=== PATIENT | male | born 1970 | race Caucasian/White ===

== ENCOUNTER 2021-04-13 11:04 | Emergency (ER) | payer OTHER ==
[~2021-04-13] VITALS: Ht 180.3 cm; Wt 140.0 kg
[2021-04-13 12:00] VITALS: BP 153/98
--- NOTE | 2021-04-13 13:19 | RAD ---
Exam Date: 04/13/2021 12:[address] THORAX WO Indication: Reason: rib pain S/P FALL LAST WEEK / Spl. Instructions: / History: . TECHNIQUE: CT scan of the chest was performed without intravenous contrast. One or more of the [facility] dose reduction techniques were utilized: *Automated exposure control (AEC) *Adjustment of mA and/or kV according to patient size *Use of iterative reconstruction technique *CT scan done according to ALARA, or ALARA/IMAGE GENTLY FINDINGS: There are nondisplaced or mildly displaced acute fractures of the right lateral/posterolateral fourth , fifth, sixth, seventh, and eighth ribs. There is a small right pleural effusion measuring 2 Hounsfield units, with right basilar subsegmental atelectasis. The central airways are patent. There is no pneumothorax. The visualized thyroid gland is within normal limits. No lymphadenopathy is seen. Bilateral gynecomastia is noted. Aorta is normal in caliber with no significant atherosclerotic calcifications. The heart is normal in size without pericardial effusion. Images of the upper abdomen demonstrate gallstones. Degenerative changes are seen in the spine. IMPRESSION: Nondisplaced or mildly displaced acute fractures of the right fourth, fifth, sixth, seventh, and eigh th ribs as described. Small right pleural effusion measuring simple fluid density, with right basilar subsegmental atelecta sis. Electronically signed by: Arya Damon MD (04/13/2021 1:16 PM) [facility]
[2021-04-13] MEDS ORDERED: LIDOCAINE (700MG/PATCH) PATCH. ONE (13:25)
[2021-04-13] MEDS ORDERED: HYDROcodone/APAP 7.5/325MG 1 TAB TABLET PO ONE (13:45)
[2021-04-13] MEDS ORDERED: LIDOCAINE (700MG/PATCH) PATCH. TD SCH ×2 (14:00)
[2021-04-13] MEDS ORDERED: HYDROcodone/APAP 5/325MG 1 TAB TABLET PO ONE (14:30)
[2021-04-13] MEDS ORDERED: LIDO700A21 TP (14:37)
[2021-04-13] MEDS ORDERED: HYDR-2155 PO (14:37)
--- NOTE | 2021-04-13 14:38 | PHYS DOC ---
Past History Past Surgical History: Other Additional Past Surgical Histo: R knee scope, achillies tendon, plantar fascitis Alcohol Use: Occasionally General Adult EDM: Chief Complaint: RIB PAIN HPI: HPI: 50-year-old male with no significant past medical history presents to the ED with his , (patient consents to his/her/their knowledge and involvement in pts' medical care), complaints of posterior back pain described as spasming and intermittent for the past week after patient slipped on ice, landed on his back 1 week ago. Reports he did not hit his head. Is not prescribed medications- does not take any anticoagulants. Has no routine primary care physician. Was not under the influence of any alcohol or drugs at time of injury. Does report history of prior old rib fractures. Review of Systems: Review of Systems: Constitutional: Denies fever or chills Eyes: Denies change in visual acuity HENT: Denies nasal congestion or sore throat Respiratory: Denies cough or shortness of breath Cardiovascular: Denies chest pain or edema GI: Denies abdominal pain, nausea, vomiting, : Denies saddle anesthesia or incontinence Musculoskeletal: Denies midline back pain or joint pain Integument: Denies rash or diaphoresis Neurologic: Denies headache or neck pain Psychiatric: Denies depression or anxiety Current Medications: Current Meds: Current Medications Medications (Trade) Dose Ordered Sig/Kelly Start Time Stop Time Status Last Admin Dose Admin Acetaminophen/ Hydrocodone Bitart (Lortab 7.5/325) 1 tab 1X ONCE 04/13/21 13:45 04/13/21 13:55 DC 04/13/21 13:53 1 TAB Lidocaine (Lidoderm) 1 patch DAILY 04/13/21 14:00 04/13/21 13:57 DC Miscellaneous (Lidoderm Patch Removal) 1 ea QHS 04/13/21 21:00 Allergies: Allergies: Allergies Coded Allergies Type Severity Reaction Last Updated Verified No Known Drug Allergies 04/13/21 No Physical Exam: PE: Constitutional: Well developed, well nourished, no acute distress, non-toxic appearance, tall/ambulatory HENT: Normocephalic, atraumatic, Eyes: EOMI, conjunctiva normal, no discharge. Neck: Normal range of motion, supple, Cardiovascular: S1/2 present, regular rhythm Lungs & Thorax: Speaking in full sentences, bilateral equal chest rise, no tachypnea or increased work of breathing Abdomen: soft, no tenderness, obese Skin: Warm, dry, no erythema, no rash. [] Back: No midline spinal step-offs or tenderness, right mid thoracic posterior rib tenderness -also tender in midaxillary line Extremities: No tenderness, no cyanosis, no lower extremity edema Neurologic: Alert and oriented X 3, normal motor function, normal sensory function, no focal deficits noted. [] Psychologic: Affect normal, judgement normal, mood normal. [] Current Patient Data: Vital Signs: Vital Signs Date Time Temp Pulse Resp B/P (MAP) Pulse Ox O2 Delivery O2 Flow Rate FiO2 04/13/21 13:53 18 97 04/13/21 12:00 97.9 69 153/98 (116) EKG: EKG: Normal sinus rhythm 70 bpm, left axis deviation, normal intervals, no T wave inversion, no ST elevation or ST depression Radiology/Procedures: Radiology/Procedures: IMAGING REPORT Signed PATIENT: KADEN ISSA ACCOUNT: [id number] : 1970 LOCATION: ER AGE: 50 SEX: M EXAM STATUS: REG ER ORD. PHYSICIAN: PEPPER RAYMOND DO REASON: rib pain S/P FALL LAST WEEK PROCEDURE: CT CHEST WO CONTRAST Exam Date: 04/13/2021 12:[address] THORAX WO Indication: Reason: rib pain S/P FALL LAST WEEK / Spl. Instructions: / History: . TECHNIQUE: CT scan of the chest was performed without intravenous contrast. One or more of the following dose reduction techniques were utilized: *Automated exposure control (AEC) *Adjustment of mA and/or kV according to patient size *Use of iterative reconstruction technique *CT scan done according to ALARA, or ALARA/IMAGE GENTLY FINDINGS: There are nondisplaced or mildly displaced acute fractures of the right lateral/posterolateral fourth, fifth, sixth, seventh, and eighth ribs. There is a small right pleural effusion measuring 2 Hounsfield units, with right basilar subsegmental atelectasis. The central airways are patent. There is no pneumothorax. The visualized thyroid gland is within normal limits. No lymphadenopathy is seen. Bilateral gynecomastia is noted. Aorta is normal in caliber with no significant atherosclerotic calcifications. The heart is normal in size without pericardial effusion. Images of the upper abdomen demonstrate gallstones. Degenerative changes are seen in the spine. IMPRESSION: Nondisplaced or mildly displaced acute fractures of the right fourth, fifth, sixth, seventh, and eighth ribs as described. Small right pleural effusion measuring simple fluid density, with right basilar subsegmental atelectasis. Electronically signed by: Aidan Damon MD (04/13/2021 1:16 PM) [facility] DICTATED AND SIGNED BY: AIDAN DAMON MD DATE: 04/13/21 1047 CC: PCP,NO; PEPPER RAYMOND DO ~MTH0 0 Heart Score: C/O Chest Pain: No Risk Factors: Risk Factors: DM, Current or recent (<one month) smoker, HTN, HLP, family history of CAD, obesity. Risk Scores: Score 0 - 3: 2.5% MACE over next 6 weeks - Discharge Home Score 4 - 6: 20.3% MACE over next 6 weeks - Admit for Clinical Observation Score 7 - 10: 72.7% MACE over next 6 weeks - Early Invasive Strategies Course & Med Decision Making: Course & Med Decision Making Pertinent Labs and Imaging studies reviewed. (See chart for details) Concern for closed, posterior lateral right-sided rib fractures in a well- appearing male requiring no oxygen. Patient is hemodynamically stable. Will provide incentive spirometer and analgesia-understands risk of addiction and apnea with narcotics (pt seems reliable and knowledgable of risks). Patient was also educated on risk of pneumonia. Will discharge home with strict ED return precautions were given for fever, productive cough, chest pain or hemoptysis. Encouraged urgent outpatient follow-up with PMD for routine care. Life- threatening processes were considered but are low suspicion at this time, given history, physical exam and ED workup. Pt was educated on all prescription medications and adverse effects. All patient's questions were answered and pt was stable at time of discharge. Life/limb-threatening differential includes but is not limited to, intracranial hemorrhage, diffuse axonal injury, spinal cord syndrome, unstable cervical fracture or SCIWORA, fractures or joint dislocations, neurovascular injuries, organ injury or laceration, pneumothorax, pneumoperitoneum, pericardial tamponade, unstable pelvic fracture, compartment syndrome, flail chest or respiratory distress, burn injury or asphyxiation I have spoken with the patient and/or caregivers. I explained the patient's condition, diagnoses and treatment plan based on the information available to me at this time. I have answered the patient and/or caregiver's questions and addressed any concerns. The patient and/or caregivers have a good understanding of patient's diagnosis, condition and treatment plan as can be expected at this point. Vital signs have been stable. Patient's condition is stable and appropriate for discharge from the emergency department. Patient will pursue further outpatient evaluation with primary care physician or other designated or consulting physician as outlined in the discharge instructions. The patient and/or caregivers are agreeable to this plan of care and follow-up instructions have been explained in detail. The patient and/or caregivers have received these instructions in written form and have expressed an understanding of the discharge instructions. The patient and/or caregivers are aware that any significant change of condition or worsening of symptoms should prompt immediate return to this or the closest emergency department or call to 074. Bc Disclaimer: [employer] Disclaimer: This electronic medical record was generated, in whole or in part, using a voice recognition dictation system. Departure Departure: Impression: Primary Impression: Multiple fractures of ribs of right side Disposition: 01 HOME / SELF CARE / HOMELESS Condition: STABLE Referrals: PCP,ENOCH (PCP) SANDY PENNINGTON MD Follow up with your pcp in 1-2 days or [facility] [place] [phone] OR [facility]-Dr. Pennington [phone] Patient Instructions: Incentive Spirometer, Rib Fracture Additional Instructions: EMERGENCY DEPARTMENT GENERAL DISCHARGE INSTRUCTIONS Thank you for coming to [facility] (ED) today and trusting us with you care. We trust that you had a positivie experience in our Emergency Department. If you wish to speak to the department management, you may call the director at [phone]. YOUR FOLLOW UP INSTRUCTIONS ARE FOLLOWS: 1. Do you have a private Doctor? If you do not have a private doctor, please ask for a resource list of physicians or clinics that may be able to assist you with follow up care. 2. The Emergency Physician has interpreted your x-rays. The X-Ray specialist will also review them. If there is a change in the findings, you will be notified in 48 h ours when at all possible. 3. A lab test or culture has been done, your results will be reviewed and you will be notified if you need a change in treatment. ADDITIONAL INSTRUCTIONS AND INFORMATION: 1. Your care today has been supervised by a physician who is specially trained in emergency care. Many problems require more than one evaluation for a complete diagnosis and treatment. We recommend that you schedule your follow up appointment as recommended to ensure complete treatment of you illness or injury. If you are unable to obtain follow up care and continue to have a problem, or if your condition worsens, we recommend that you return to the ED. 2. We are not able to safely determine your condition over the phone nor are we able to give sound medical advice over the phone. For these safety reasons, if you call for medical advice we will ask you to come to the ED for further evaluation. 3. If you have any questions regarding these discharge instructions please call the ED at [phone]. SAFETY INFORMATION: In the interest of safety, wellness, and injury prevention; we encourage you to wear your sealbelt, if you smoke; quite smoking, and we encourage family to use a protective helmet for bicycling and other sporting events that present an increased risk for head injury. IF YOUR SYMPTOMS WORSEN OR NEW SYMPTOMS DEVELOP, OR YOU HAVE CONCERNS ABOUT YOUR CONDITION; OR IF YOUR CONDITION WORSENS WHILE YOU ARE WAITING FOR YOUR FOLLOW UP APPOINTMENT; EITHER CONTACT YOUR PRIMARY CARE DOCTOR, THE PHYSICIAN WHOSE NAME AND NUMBER YOU WERE GIVEN, OR RETURN TO THE ED IMMEDIATELY. Scripts Hydrocodone Bit/Acetaminophen (HYDROCODONE-APAP 5-325 ) 1 Each Tablet 1 TAB PO PRN Q6HRS PRN for PAIN for 4 Days, #16 TAB 0 Refills Prov: PEPPER RAYMOND DO 04/13/21 Lidocaine (Lidocaine PATCH ) 1 Each Adh..patch 1 EACH TP DAILY for FOR LOCAL PAIN for 5 Days, #5 PATCH REMOVE AFTER 12 HOURS Prov: PEPPER RAYMOND DO 04/13/21 PEPPER RAYMOND DO Apr 13, 2021 14:38
--- NOTE | 2021-04-13 17:25 | EKG ---
[address] [address] Test Date: 2021-04-13 Test Time: 11:35:40 Pat Name: KADEN ISSA Department: Room: Gender: M Clin Asst: : 1970 Requested By: PEPPER RAYMOND Order Number: [id number] Reading MD: Ramone Mojica Measurements Intervals [place] Rate: 75 P: 18 LA: 144 QRS: -17 QRSD: 80 T: 39 QT: 366 QTc: 411 Interpretive Statements SINUS RHYTHM Electronically Signed On 04-15-2021 18:01:41 [employer] by Ramone Mojica
[2021-04-13] MEDS ORDERED: PATCH REMOVAL. MC SCH (21:00)
[2021-04-14] MEDS ORDERED: LIDOCAINE (700MG/PATCH) PATCH. TD SCH (09:00)
== END 2021-04-13 14:45 | disposition home or self-care (01) ==
LOC: ER 11:04
DX: S22.41XA Multiple fractures of ribs, right side, initial encounter for closed fracture (principal); W00.0XXA Fall on same level due to ice and snow, initial encounter; Y93.89 Activity, other specified; Y92.89 Other specified places as the place of occurrence of the external cause; Y99.8 Other external cause status
CPT/HCPCS: 71250; 93005; 99284; G0238